=== PATIENT | female | born 1945 | race Caucasian/White ===

== ENCOUNTER 2017-03-29 22:07 | Inpatient (IN) | payer SELFPAY ==
[~2017-03-29] VITALS: Ht 165.1 cm; Wt 66.4 kg
[2017-03-29] MEDS ORDERED: DEXTROSE 50% WATER 50ML SYRINGE IV ONE (22:57)
[2017-03-29] MEDS ORDERED: ONDANSETRON HCL 4MG/2ML VIAL IV ONE (23:15)
[2017-03-29 23:22] LABS: CLARITY URINE CLEAR (CLEAR); COLOR URINE YELLOW (YELLOW); GLUCOSE URINE NEGATIVE (NEGATIVE); KETONES URINE NEGATIVE (NEGATIVE); LEUKOCYTE ESTERASE URINE NEGATIVE (NEGATIVE); NITRITE URINE NEGATIVE (NEGATIVE); OCCULT BLOOD URINE TRACE (NEGATIVE); PROTEIN URINE 2+ (NEGATIVE); UROBILINOGEN URINE 0.2 E.U./dL (0.2-1.0)
[2017-03-29 23:32] LABS: HEMATOCRIT. 25.7 % (36.0-48.0); HEMOGLOBIN. 8.8 g/dL (12.0-16.0); MEAN CORPUSCULAR HEMOGLOBIN 27.8 pg (28.0-32.0); MEAN CORPUSCULAR VOLUME 81.2 fL (81.0-99.0); MEAN PLATELET VOLUME 8.7 fl (7.4-10.4); PLATELET 183 x1000/uL (130-400); RED BLOOD CELL COUNT 3.17 mill/uL (4.2-5.4); RED CELL DISTRIBUTION WIDTH 16.1 % (11.6-14.6)
[2017-03-29 23:48] LABS: CARBON DIOXIDE 27 mEq/L (21-32); CHLORIDE 92 mEq/L (98-107); TROPONIN I 0.05 ng/mL (0.00-0.04)
[2017-03-30] VITALS (9 sets, daily range): BP systolic 122–155; BP diastolic 58–75
[2017-03-30] MEDS ORDERED: DEXT 5%/0.45% NACL KCL 20MEQ/L 1,000 ML IV ONE (01:58)
[2017-03-30] MEDS ORDERED: DEXTROSE 50% WATER 50ML SYRINGE IV ONE ×4 (02:00→10:17)
[2017-03-30 02:38] LABS: PLATELET ESTIMATE NORMAL
[2017-03-30] MEDS ORDERED: DEXT 10% WATER 1,000 ML IV ONE (05:51)
[2017-03-30] MEDS ORDERED: DEXTROSE 50% WATER 50ML SYRINGE IV NR (10:30)
[2017-03-30] MEDS ORDERED: IPRATROPIUM/ALBUTEROL 0.5-3(2.5)MG/3ML NEB INH PRN (10:45)
[2017-03-30] MEDS ORDERED: LORAZEPAM 0.5MG TABLET PO PRN (10:45)
[2017-03-30] MEDS ORDERED: LORAZEPAM 2MG/ML CPJ IV PRN (10:45)
[2017-03-30] MEDS ORDERED: CLONIDINE 0.1MG TABLET PO PRN (10:45)
[2017-03-30] MEDS ORDERED: DIPHENHYDRAMINE 50MG/ML VIAL IV PRN (10:45)
[2017-03-30] MEDS ORDERED: MAGNESIUM/ALUMINUM HYDROXIDE/SIMETHICONE 30ML UDC PO PRN (10:45)
[2017-03-30] MEDS ORDERED: ONDANSETRON HCL 4MG/2ML VIAL IV PRN (10:45)
[2017-03-30] MEDS ORDERED: ACETAMINOPHEN 650MG/20.3ML UDC GT PRN (10:45)
[2017-03-30] MEDS ORDERED: ACETAMINOPHEN 650MG SUPP PR PRN (10:45)
[2017-03-30] MEDS ORDERED: FURO80TA3 PO (10:46)
[2017-03-30] MEDS ORDERED: FURO40TA5 PO (10:47)
[2017-03-30] MEDS ORDERED: SIMV40TA5 PO (10:50)
[2017-03-30] MEDS ORDERED: ASPI-1159 PO (10:50)
[2017-03-30] MEDS ORDERED: NIFE60TA64 PO (10:50)
[2017-03-30] MEDS: INSULIN LISPRO 100 UNITS/ML SUBCUT SCH ×3 (10:51→21:00)
[2017-03-30] MEDS: BLOOD SUGAR DIAGNOSTIC STRIP TEST SCH ×3 (10:51→21:26)
[2017-03-30] MEDS ORDERED: PNEUMOCOCCAL 23-VAL P-SAC VAC 0.5 ML IM ONE (11:00)
[2017-03-30 11:34] LABS: TROPONIN I 0.05 ng/mL (0.00-0.04)
[2017-03-30 12:29] LABS: PARTIAL THROMBOPLASTIN TIME 26.5 sec (24.0-34.0); PROTHROMBIN TIME 10.8 sec
[2017-03-30 12:59] LABS: HEPATITIS B SURFACE ANTIGEN NEGATIVE
[2017-03-30 13:08] LABS: HEPATITIS B CORE AB IGM NEGATIVE
[2017-03-30 13:10] LABS: HEPATITIS A AB IGM NEGATIVE (NEGATIVE)
[2017-03-30 15:48] LABS: HEPATITIS B SURFACE AB < 3.1 mIU/mL
[2017-03-30 16:28] LABS: HEPATITIS B CORE AB IGM NEGATIVE
[2017-03-30] MEDS ORDERED: DEXT 10% WATER 1,000 ML IV SCH (20:45)
[2017-03-30] MEDS: DEXTROSE 50% WATER 50ML SYRINGE IV PRN (21:35)
[2017-03-30] MEDS ORDERED: HEPARIN SODIUM 1,000 UNIT/1ML VIAL IV NR (23:30)
[2017-03-31] VITALS (15 sets, daily range): BP systolic 73–149; BP diastolic 36–90
[2017-03-31] MEDS: DEXTROSE 50% WATER 50ML SYRINGE IV PRN ×2 (01:35→05:35)
[2017-03-31] MEDS: BLOOD SUGAR DIAGNOSTIC STRIP TEST SCH ×4 (05:55→21:00)
[2017-03-31 06:49] LABS: BASOPHILS % 0.3 % (0.0-2.0); EOSINOPHILS % 2.1 % (0.0-5.0); HEMATOCRIT. 23.5 % (36.0-48.0); LYMPHOCYTES % 16.1 % (20.0-50.0); MEAN CORPUSCULAR HEMOGLOBIN 27.8 pg (28.0-32.0); MEAN CORPUSCULAR VOLUME 81.7 fL (81.0-99.0); MEAN PLATELET VOLUME 9.2 fl (7.4-10.4); MONOCYTES % 12.7 % (2.0-8.0); NEUTROPHILS % 68.8 % (40.0-76.0); PLATELET 169 x1000/uL (130-400); RED BLOOD CELL COUNT 2.88 mill/uL (4.2-5.4); RED CELL DISTRIBUTION WIDTH 16.3 % (11.6-14.6)
[2017-03-31] MEDS: INSULIN LISPRO 100 UNITS/ML SUBCUT SCH ×4 (07:20→23:32)
[2017-03-31 07:44] LABS: PHOSPHORUS 3.6 mg/dL (2.5-4.9)
[2017-03-31] MEDS: ASPIRIN 81MG EC TABLET PO SCH (08:47)
[2017-03-31] MEDS: NIFEDIPINE XL 60MG TAB PO SCH (08:47)
[2017-04-01] VITALS (13 sets, daily range): BP systolic 88–136; BP diastolic 42–69
[2017-04-01] MEDS: BLOOD SUGAR DIAGNOSTIC STRIP TEST SCH ×2 (06:18→11:50)
[2017-04-01] MEDS: INSULIN LISPRO 100 UNITS/ML SUBCUT SCH ×2 (06:23→12:58)
[2017-04-01] MEDS ORDERED: INSULIN LISPRO 100 UNITS/ML SUBCUT SCH (07:20)
[2017-04-01] MEDS: ASPIRIN 81MG EC TABLET PO SCH (08:12)
[2017-04-01] MEDS: NIFEDIPINE XL 60MG TAB PO SCH (08:12)
[2017-04-01 13:30] LABS: BASOPHILS % 0.5 % (0.0-2.0); EOSINOPHILS % 1.9 % (0.0-5.0); HEMATOCRIT. 27.4 % (36.0-48.0); LYMPHOCYTES % 11.8 % (20.0-50.0); MEAN CORPUSCULAR HEMOGLOBIN 27.5 pg (28.0-32.0); MEAN CORPUSCULAR VOLUME 83.2 fL (81.0-99.0); MEAN PLATELET VOLUME 9.1 fl (7.4-10.4); NEUTROPHILS % 75.8 % (40.0-76.0); PLATELET 202 x1000/uL (130-400); RED BLOOD CELL COUNT 3.29 mill/uL (4.2-5.4); RED CELL DISTRIBUTION WIDTH 16.5 % (11.6-14.6)
[2017-04-01 13:41] LABS: PHOSPHORUS 4.2 mg/dL (2.5-4.9)
== END 2017-04-01 14:59 | disposition home or self-care (01) | DRG 468 ==
LOC: ER 22:25 → CANRESERV 03-30 05:40 → ENRESERV 03-30 05:40 → EDBEDREQSVC 03-30 05:58 → ENRESERV 03-30 07:39 → 3WST 03-30 08:41
PROVIDERS: ADMIT Internal Medicine Nephrology; ATTEND Internal Medicine Nephrology
PROC: 02HV33Z Insertion of Infusion Device into Superior Vena Cava, Percutaneous Approach (ICD-10-PCS; principal; 2017-03-30)
PROC: B548ZZA Ultrasonography of Superior Vena Cava, Guidance (ICD-10-PCS; 2017-03-30)
PROC: 5A1D60Z (ICD-10-PCS; 2017-03-30)
DX: I12.9 Hypertensive chronic kidney disease with stage 1 through stage 4 chronic kidney disease, or unspecified chronic kidney disease (principal); E11.22 Type 2 diabetes mellitus with diabetic chronic kidney disease; E11.649 Type 2 diabetes mellitus with hypoglycemia without coma; D64.9 Anemia, unspecified; Z79.82 Long term (current) use of aspirin; Z79.899 Other long term (current) drug therapy; Z99.2 Dependence on renal dialysis; N18.9 Chronic kidney disease, unspecified
CPT/HCPCS: 36415; 36569; 70450; 71010; 76937; 80048; 80053; 80061; 81001; 82947; 82962; 83036; 83690; 83735; 83880; 84100; 84443; 84484; 85025; 85610; 85730; 86705; 86706; 86709; 86803; 87340; 90732; 93005; 93970; 96361; 96374; 99285; C1752; J1644; J1815; J2405; J7030; J7040

== ENCOUNTER 2017-04-10 09:59 | Emergency (ER) | payer MEDICAID ==
[~2017-04-10] VITALS: Ht 167.6 cm; Wt 66.5 kg
[~2017-04-10 09:59] MED LIST: ASPI-1159 PO; FURO40TA5 PO; FURO80TA3 PO; NIFE60TA64 PO; SIMV40TA5 PO
[2017-04-10 11:16] LABS: BASOPHILS % 0.8 % (0.0-2.0); EOSINOPHILS % 2.6 % (0.0-5.0); HEMATOCRIT. 23.6 % (36.0-48.0); LYMPHOCYTES % 13.3 % (20.0-50.0); MEAN CORPUSCULAR HEMOGLOBIN 28.4 pg (28.0-32.0); MEAN CORPUSCULAR VOLUME 84.2 fL (81.0-99.0); MEAN PLATELET VOLUME 8.5 fl (7.4-10.4); NEUTROPHILS % 72.3 % (40.0-76.0); PLATELET 191 x1000/uL (130-400); RED BLOOD CELL COUNT 2.81 mill/uL (4.2-5.4); RED CELL DISTRIBUTION WIDTH 16.2 % (11.6-14.6)
[2017-04-10 11:24] LABS: PROTHROMBIN TIME 10.6 sec
[2017-04-10 11:29] LABS: CARBON DIOXIDE 37 mEq/L (21-32); CHLORIDE 95 mEq/L (98-107)
[2017-04-10 11:34] LABS: KETONES URINE NEGATIVE (NEGATIVE); LEUKOCYTE ESTERASE URINE TRACE (NEGATIVE); NITRITE URINE NEGATIVE (NEGATIVE); OCCULT BLOOD URINE TRACE (NEGATIVE); PROTEIN URINE 3+ (NEGATIVE); SPECIFIC GRAVITY URINE 1.013 (1.005-1.030); UROBILINOGEN URINE 0.2 E.U./dL (0.2-1.0)
[2017-04-10 11:35] LABS: CLARITY URINE CLEAR (CLEAR); COLOR URINE YELLOW (YELLOW)
[2017-04-10 14:49] VITALS: BP 144/68
== END 2017-04-10 14:50 | disposition home or self-care (01) ==
LOC: ER 10:35
DX: D64.9 Anemia, unspecified (principal); E11.22 Type 2 diabetes mellitus with diabetic chronic kidney disease; N18.6 End stage renal disease; Z99.2 Dependence on renal dialysis; Z79.82 Long term (current) use of aspirin
CPT/HCPCS: 36415; 80053; 81001; 82962; 85025; 85610; 86850; 86900; 86901; 99284; Z7610

== ENCOUNTER 2017-04-29 06:45 | Emergency (ER) | payer SELFPAY ==
[2017-04-29] VITALS (7 sets, daily range): BP systolic 137–161; BP diastolic 58–89
[~2017-04-29] VITALS: Ht 165.1 cm; Wt 67.0 kg
[2017-04-29 07:46] LABS: BASOPHILS % 0.9 % (0.0-2.0); EOSINOPHILS % 3.5 % (0.0-5.0); HEMATOCRIT. 27.2 % (36.0-48.0); HEMOGLOBIN. 9.3 g/dL (12.0-16.0); LYMPHOCYTES % 15.2 % (20.0-50.0); MEAN CORPUSCULAR HEMOGLOBIN 30.5 pg (28.0-32.0); MEAN CORPUSCULAR VOLUME 89.3 fL (81.0-99.0); MEAN PLATELET VOLUME 8.6 fl (7.4-10.4); MONOCYTES % 10.9 % (2.0-8.0); NEUTROPHILS % 69.5 % (40.0-76.0); PLATELET 182 x1000/uL (130-400); RED BLOOD CELL COUNT 3.05 mill/uL (4.2-5.4); RED CELL DISTRIBUTION WIDTH 18.1 % (11.6-14.6)
[2017-04-29 07:54] LABS: INR 1.1
[2017-04-29 08:02] LABS: CARBON DIOXIDE 32 mEq/L (21-32); CHLORIDE 98 mEq/L (98-107)
[2017-04-29] MEDS ORDERED: SODIUM BICARBONATE 4% (2.4MEQ) 5ML VIAL IV ONE (11:15)
[2017-04-29] MEDS ORDERED: LIDOCAINE HCL 1% 20ML VIAL (Pyxis) INJ ONE (11:15)
[2017-04-29] MEDS ORDERED: FENTANYL CITRATE/PF 50MCG/ML 2ML VIAL ONE (11:18)
[2017-04-29] MEDS ORDERED: CEFAZOLIN 1000MG PREMIX 50 ML IV ONE ×2 (11:18→12:00)
[2017-04-29] MEDS ORDERED: FENTANYL CITRATE/PF 50MCG/ML 2ML VIAL IV SCH (12:00)
[2017-04-29] MEDS ORDERED: CEFAZOLIN 1000MG PREMIX 50 ML IV SCH (12:45)
== END 2017-04-29 13:06 | disposition home or self-care (01) ==
LOC: ER 07:20
DX: T82.898A Other specified complication of vascular prosthetic devices, implants and grafts, initial encounter (principal); E11.9 Type 2 diabetes mellitus without complications; N18.6 End stage renal disease; Z79.82 Long term (current) use of aspirin; Z99.2 Dependence on renal dialysis; Y92.89 Other specified places as the place of occurrence of the external cause
CPT/HCPCS: 36415; 36558; 36589; 71010; 76937; 77001; 80053; 85025; 85610; 96365; 96375; 99285; C1750; C1769; J0690; J1642; J3010; J3490; J7050; Z7610

== ENCOUNTER 2017-11-19 08:58 | Emergency (ER) | payer MEDICAID ==
[~2017-11-19] VITALS: Ht 160 cm; Wt 67.0 kg
[2017-11-19 11:07] LABS: BASOPHILS % 0.6 % (0.0-2.0); EOSINOPHILS % 3.8 % (0.0-5.0); HEMATOCRIT. 34.1 % (36.0-48.0); HEMOGLOBIN. 11.2 g/dL (12.0-16.0); LYMPHOCYTES % 21.9 % (20.0-50.0); MEAN CORPUSCULAR HEMOGLOBIN 30.4 pg (28.0-32.0); MEAN CORPUSCULAR VOLUME 92.6 fL (81.0-99.0); MEAN PLATELET VOLUME 8.4 fl (7.4-10.4); MONOCYTES % 13.3 % (2.0-8.0); NEUTROPHILS % 60.4 % (40.0-76.0); PLATELET 160 x1000/uL (130-400); RED BLOOD CELL COUNT 3.68 mill/uL (4.2-5.4); RED CELL DISTRIBUTION WIDTH 14.5 % (11.6-14.6)
[2017-11-19 11:17] LABS: PROTHROMBIN TIME 10.6 sec (9.4-11.6)
[2017-11-19] MEDS ORDERED: LIDOCAINE HCL 1% 20ML VIAL (Pyxis) INJ ONE (13:03)
[2017-11-19] MEDS ORDERED: SODIUM BICARBONATE 4% (2.4MEQ) 5ML VIAL IV ONE (13:04)
[2017-11-19] MEDS ORDERED: SEVE800T8 PO (13:47)
[2017-11-19] MEDS ORDERED: ASPI-1159 PO (13:47)
[2017-11-19 14:44] VITALS: BP 148/59
== END 2017-11-19 14:46 ==
LOC: ER 10:11 → CANBEDREQ 16:03
DX: Z46.6 Encounter for fitting and adjustment of urinary device (principal); I12.0 Hypertensive chronic kidney disease with stage 5 chronic kidney disease or end stage renal disease; E11.22 Type 2 diabetes mellitus with diabetic chronic kidney disease; D50.9 Iron deficiency anemia, unspecified; N18.6 End stage renal disease; Z79.82 Long term (current) use of aspirin; Z99.2 Dependence on renal dialysis
CPT/HCPCS: 36415; 36589; 80048; 85025; 85610; 99285; J3490; Z7610